=== PATIENT | female | born 1950 | race African-American/Black ===

== ENCOUNTER 2016-08-01 06:22 | Emergency (ER) | payer BC ==
--- NOTE | 2016-08-01 07:01 | ER Document Report ---
ED Blood Pressure Problem - General Time seen by provider: 06:50 Mode of Arrival: Ambulatory Information source: Patient TRAVEL OUTSIDE OF THE [place] IN LAST 30 DAYS: No - HPI Patient complains to provider of: High blood pressure Onset: Other - see HPI Onset/Duration: Persistent Problem is: Chronic problem Associated symptoms: Nausea, Other - tired Similar symptoms previously: Yes - see HPI <KHADRA LE - Last Filed: 08/01/16 07:27> <GLENNY PERRY - Last Filed: 08/01/16 10:44> - General Chief Complaint: High Blood Pressure Stated Complaint: BLOOD PRESSURE PROBLEM Notes: Patient is a 66-year-old female presenting to the emergency department with complaints of hypertension. Patient states that she noticed her blood pressure is exquisitely high at her primary care physician's office on Tuesday. Patient states her blood pressure was 197/92 that day and was told to monitor her pressure throughout the week. Patient states that her blood pressure is normally high when she is physician's office. Patient states her blood pressure on Tuesday was 114/64; patient explains her low pressure was due to taking a "relaxation tea." Patient states her blood pressure on Tuesday was 144/78. Patient states this morning she woke up feeling very nauseous and tired patient checked her blood pressure and stated it was very high in the 200s. Patient's pressure upon arrival to the ED was 206/108. Patient takes valsartan 160mg as well as hydrochlorothiazide; patient takes these in the evening and she did take her medication last night. Patient has been on this medication since 2011 patient states every 2-3 years her doctor if he the actual medication for her hypertension. Patient states that when she has an episode similar to the one today, her doctor will change her type of medication. Patient has no other pertinent medical history or any previous surgeries. Patient states had seen her are on their way to [place] and had to cancel her flight this morning. Patient requests additional medication for a week until she can see her primary care doctor when she returns. Patient's PCP is Dr. Nuñez with [facility]. Patient has no known allergies. (KHADRA LE) - Related Data Allergies/Adverse Reactions: No Known Allergies Allergy (Unverified 08/01/16 07:05) Past Medical History - General Information source: Patient - Social History Smoking Status: Never Smoker Chew tobacco use (# tins/day): No Frequency of alcohol use: Occasional Drug Abuse: None Family History: None Patient has suicidal ideation: No Patient has homicidal ideation: No - Past Medical History Cardiac Medical History: Reports: Hx Hypertension Surgical Hx: Negative <OLIVIA LEINE - Last Filed: 08/01/16 07:27> Review of Systems - Review of Systems Constitutional: No symptoms reported EENT: No symptoms reported Cardiovascular: No symptoms reported Respiratory: No symptoms reported Gastrointestinal: See HPI, Nausea Genitourinary: No symptoms reported Female Genitourinary: No symptoms reported Musculoskeletal: No symptoms reported Skin: No symptoms reported Hematologic/Lymphatic: No symptoms reported Neurological/Psychological: See HPI -: Yes All other systems reviewed and negative <KHADRA LE Last Filed: 08/01/16 07:27> Physical Exam - Vital signs Interpretation: Hypertensive - General General appearance: Appears well, Alert In distress: None - HEENT Head: Normocephalic, Atraumatic Eyes: Normal Pupils: PERRL Mucous membranes: Normal Neck: No: Carotid bruit - Respiratory Respiratory status: No respiratory distress Chest status: Nontender Breath sounds: Normal Chest palpation: Normal - Cardiovascular Rhythm: Regular Heart sounds: Normal auscultation Murmur: No - Abdominal Inspection: Normal Distension: No distension Bowel sounds: Normal Tenderness: Nontender Organomegaly: No organomegaly - Back Back: Normal, Nontender - Extremities General upper extremity: Normal inspection, Normal ROM, Normal strength General lower extremity: Normal inspection, Normal ROM, Normal strength - Neurological Neuro grossly intact: Yes Cognition: Normal Orientation: AAOx4 Kumar Coma Scale Eye Opening: Spontaneous [place] Coma Scale Verbal: Oriented Kumar Coma Scale Motor: Obeys Commands [place] Coma Scale Total: 15 Speech: Normal Sensory: Normal - Psychological Associated symptoms: Normal affect, Anxious - Skin Skin Temperature: Warm Skin Moisture: Dry <KHADRA LE - Last Filed: 08/01/16 07:27> Course <KHADRA LE Filed: 08/01/16 07:27> - Laboratory Result Diagrams: 08/01/16 07:30 08/01/16 07:30 - EKG Interpretation by Nc EKG shows normal: Sinus rhythm, [place], Intervals, QRS Complexes. abnormal: ST-T Waves - Borderline T-wave abnormalities Rate: Normal - 79 Rhythm: NSR <GLENNY PERRY - Last Filed: 08/01/16 10:44> - Re-evaluation Re-evalutation: 08/01/16 10:40 The 0.2 mg clonidine brought the patient's pressure to 100 systolic range. She was given 1 L of normal saline. Her pressure has now stabilized at 122 systolic. She feels quite fine and had no symptoms from the lower pressure. She will be discharged home with 0.1 mg clonidine take when necessary elevated blood pressures. She understands that if her pressure goes up but it is near time for her valsartan, then she should take valsartan. If her pressures are running high when she gets up going in the morning after taking the valsartan the night before, she should take the clonidine. She will follow-up with her primary care provider in the next week to review her medications and see if they would prefer to increase her valsartan daily dose. (GLENNY PERRY) - Vital Signs Vital signs: Temp Pulse Resp BP Pulse Ox 97.9 F 96 18 100/59 L 94 08/01/16 06:32 08/01/16 06:32 08/01/16 09:01 08/01/16 09:00 08/01/16 09:01 (KHADRA LE) (GLENNY PERRY) - Laboratory Laboratory results interpreted by il: 08/01/16 08/01/16 07:30 07:30 RBC 5.78 H MCH 24.7 L MCHC 31.0 L RDW 14.6 H Sodium 146.2 H Calcium 10.4 H Creatine Kinase 144 H (GLENNY PERRY) Discharge <KHADRA LE - Last Filed: 08/01/16 07:27> <GLENNY PERRY - Last Filed: 08/01/16 10:44> - Discharge Clinical Impression: High blood pressure Qualifiers: Hypertension type: essential hypertension Qualified Code(s): I10 - Essential ( primary) hypertension Condition: Stable Disposition: HOME, SELF-CARE Additional Instructions: Take the clonidine 0.1 mg tablet if you notice your blood pressure is elevated several hours after taking the valsartan dose. Do not take the clonidine more than twice a day. Do not take the clonidine if it is new time to take your evening dose of valsartan. Follow-up with your doctor this week to review your medication and see if they would like to increase your valsartan dose. RETURN TO THE EMERGENCY ROOM IF ANY NEW OR WORSENING SYMPTOMS. Prescriptions: Clonidine HCl 0.1 mg PO BID PRN #30 tablet PRN Reason: Scribe Attestation: 08/01/16 10:44 I personally performed the services described in the documentation, reviewed and edited the documentation which was dictated to the scribe in my presence, and it accurately records my words and actions. (GLENNY PERRY) Scribe Documentation <KHADRA LE - Last Filed: 08/01/16 07:27> <GLENNY PERRY - Last Filed: 08/01/16 10:44> - Scribe Written by Scribe:: GLENNY PERRY MD, SCRIBE 08/01/16 08 Acting as scribe for: Dr. Perry (KHADRA LE) (GLENNY PERRY)
[2016-08-01] MEDS ORDERED: CLONIDINE HCL 0.2 MG TABLET PO ONE (07:49)
[2016-08-01 08:07] LABS: ABSOLUTE BASOPHILS # (AUTO) 0.1 10^3/uL (0.0-0.2); ABSOLUTE EOSINOPHILS # (AUTO) 0.1 10^3/uL (0.0-0.6); ABSOLUTE LYMPHOCYTES (AUTO) 2.4 10^3/uL (0.5-4.7); ABSOLUTE MONOCYTES (AUTO) 0.7 10^3/uL (0.1-1.4); ABSOLUTE NEUT (AUTO) 7.2 10^3/uL (1.7-8.2); BASOPHILS % (AUTO) 0.5 % (0-2); EOSINOPHILS % (AUTO) 1.1 % (0-6); HEMATOCRIT 46.1 % (36.0-47.0); HEMOGLOBIN 14.3 g/dL (12.0-15.5); HGB HCT DIFFERENCE -3.2; LYMPHOCYTES % (AUTO) 22.7 % (13-45); MEAN CORPUSCULAR HEMOGLOBIN 24.7 pg (27.0-33.4); MEAN CORPUSCULAR VOLUME 80 fl (80-97); MONOCYTES % (AUTO) 6.4 % (3-13); RED BLOOD COUNT 5.78 10^6/uL (3.72-5.28); RED CELL DISTRIBUTION WIDTH 14.6 % (11.5-14.0); SEGMENTED NEUTROPHILS % (AUTO) 69.3 % (42-78); WHITE BLOOD COUNT 10.4 10^3/uL (4.0-10.5)
[2016-08-01 08:19] LABS: ALANINE AMINOTRANSFERASE 19 U/L (9-52); ALBUMIN 4.3 g/dL (3.5-5.0); ALKALINE PHOSPHATASE 75 U/L (38-126); ANION GAP 12 (5-19); ASPARTATE AMINO TRANSFERASE 21 U/L (14-36); BILIRUBIN,TOTAL 0.7 mg/dL (0.2-1.3); BLOOD UREA NITROGEN 13 mg/dL (7-20); CALCIUM 10.4 mg/dL (8.4-10.2); CARBON DIOXIDE 28 mmol/L (22-30); CHLORIDE 106 mmol/L (98-107); CREATINE KINASE 144 U/L (30-135); CREATININE RESULT 0.92 mg/dL (0.52-1.25); GLUCOSE 106 mg/dL (75-110); POTASSIUM 3.7 mmol/L (3.6-5.0); SODIUM 146.2 mmol/L (137-145); TOTAL PROTEIN 7.4 g/dL (6.3-8.2)
[2016-08-01] MEDS ORDERED: NORMAL SALINE 1000 ML 1,000 ML IV ONE (09:08)
--- NOTE | 2016-08-01 10:09 | EKG REPORT ---
SEVERITY:- BORDERLINE ECG - SINUS RHYTHM BORDERLINE T WAVE ABNORMALITIES : Confirmed by: Emma Josue MD 01-Aug-2016 10:09:11
[2016-08-01 11:00] VITALS: BP 114/67
== END 2016-08-01 11:02 | disposition home or self-care (01) ==
LOC: ER 06:22
DX: I10 Essential (primary) hypertension (principal); R11.0 Nausea; Z79.899 Other long term (current) drug therapy
CPT/HCPCS: 93005; 99284; 96360; 36415; 82550; 83735; 84443; 85025; 80053; 84484; 93010; J7030